=== PATIENT | male | born 1940 | race Caucasian/White ===

== ENCOUNTER → 2017-05-21 | Outpatient (CLI) | payer MEDICARE ==
--- NOTE | 2017-05-22 11:16 | RADIOLOGY REPORT (SQ) ---
EXAM DESCRIPTION: MRI LT LOWER EXTREMITY WITHOUT COMPLETED DATE/TIME: 05/21/2017 4:54 pm REASON FOR STUDY: PAIN IN LEFT FOOT M79.672 PAIN IN LEFT FOOT COMPARISON: None. TECHNIQUE: T1-weighted, T2-weighted, and gradient echo noncontrast multiplanar imaging of the left m idfoot. Field of view includes the anterior aspect of the ankle joint through the toes. Distal aspe cts of the toes not included. LIMITATIONS: None. FINDINGS: MARROW SIGNAL: Mild marrow edema through the distal shaft and head of the 4th metatarsal. There also appears to be very subtle marrow edema in the great toe metatarsal neck and shaft and in the medial cuneiform. No discrete fracture line identified. No suspicious bone lesion. Minimal sub chondral cysts in the superomedial talar dome. JOINT EFFUSION: No significant effusions. PLANTAR FASCIA: Origin not entirely included in the field of view. Thickening with mild edema in the plantar origin and adjacent deep subcutaneous tissues. Potential plantar fasciitis. Mild tear of t he proximal plantar fascia felt to be less likely, however this area is incompletely assessed. TARSOMETATARSAL AND TOE ARTICULATIONS: Suspect mild arthropathy along the medial cuneiform articulat ions, which look slightly narrowed. No significant osteophytes. No subluxation or dislocation. INTERMETATARSAL SPACES AND PLANTAR PLATES: Intact. No soft tissue mass to suggest a neuroma. SOFT TISSUES: No drainable collections. No regional soft tissue mass identified. Mild superficial a nd deep soft tissue edema generally. OTHER: No other significant finding. IMPRESSION: 1. Marrow edema as described. This is most pronounced in the 4th metatarsal distal sha ft and head. Potentially stress reaction. A discrete fracture is not identified. Lesser marrow tavares ma in the great toe metatarsal and medial cuneiform. 2. Thickening and edema suggested in the origi n of the plantar fascia, incompletely assessed given field of view. Probable plantar fasciitis ; giv en history of what sounds like acute injury, mild partial origin tear is also in the differential. 3 . Talar dome chondral loss is suspected, mild mortise narrowing and tiny superomedial talar dome cys ts. TECHNICAL DOCUMENTATION: JOB ID: [id number]- All Rights Reserved
== END ==
LOC: RAD 15:30
PROVIDERS: ATTEND Family Medicine
DX: M79.672 Pain in left foot (principal)